=== PATIENT | female | born 1955 | race Caucasian/White ===

== ENCOUNTER 2017-07-01 08:50 | Inpatient (IN) | payer MEDICARE ==
[~2017-07-01] VITALS: Ht 157.5 cm; Wt 112.9 kg
[~2017-07-01 08:50] MED LIST: ATOR10TA9 PO; CARV3.1212 PO; COLE1TAB2 PO; CYCL-259 PO; DICL75TA2 PO; DULO30CA2 PO; ERGO500017 PO; FERR325T10 PO; GABA800T2 PO; HYDR25TA6 PO; IBUP800T PO; METH500T7 PO; MIRT30TA4 PO; OMEP-110 PO; OXYM15TA7 PO
[2017-07-01] MEDS ORDERED: VANCOMYCIN PMX 1GM/200ML 200 ML IV STA (08:58)
[2017-07-01 09:27] VITALS: BP 141/92
[2017-07-01] MEDS ORDERED: LACTATED RINGERS 1,000 ML IV SCH (09:32)
[2017-07-01] MEDS ORDERED: XTAMPZA PO (09:58)
[2017-07-01] MEDS ORDERED: PNEUMOCOCCAL 23 VACCINE IM-VACC ONE (10:00)
[2017-07-01] MEDS ORDERED: MIDAZOLAM 1 MG/ML, 2ML ONE (11:22)
[2017-07-01] MEDS ORDERED: FENTANYL PF 250 MCG/5ML ONE ×2 (11:22→17:04)
[2017-07-01] MEDS ORDERED: TRANEXAMIC ACID 100 MG/ML, 10ML ONE (12:05)
[2017-07-01] MEDS ORDERED: BACITRACIN 50,000 UNIT ONE (12:05)
[2017-07-01] MEDS ORDERED: THROMBIN 5,000 UNIT VIAL TP ONE (12:05)
[2017-07-01] MEDS ORDERED: BUPIVACAINE/PF-EPI 0.5% 1:200K ONE (12:05)
[2017-07-01] MEDS ORDERED: METOPROLOL 1 MG/ML, 5ML ONE (12:45)
[2017-07-01] MEDS ORDERED: ROCURONIUM 10 MG/ML ONE ×2 (12:45)
[2017-07-01] MEDS ORDERED: PROPOFOL 10 MG/ML, 20ML ONE (12:45)
[2017-07-01] MEDS ORDERED: DEXAMETHASONE 4 MG/ML, 5ML ONE (12:45)
[2017-07-01] MEDS ORDERED: PHENYLEPHRINE 10 MG/ML ONE (12:45)
[2017-07-01] MEDS ORDERED: CEFAZOLIN 1,000 MG ONE ×2 (12:45)
[2017-07-01] MEDS ORDERED: ONDANSETRON 2MG/ML, 2ML ONE (12:45)
[2017-07-01] MEDS ORDERED: VANCOMYCIN 1,000 MG ONE (17:50)
[2017-07-01] MEDS ORDERED: PROMETHAZINE 25 MG/ML, 1ML IV PRN (18:00)
[2017-07-01] MEDS ORDERED: ONDANSETRON 2MG/ML, 2ML IVPush PRN (18:00)
[2017-07-01] MEDS ORDERED: OXYcodone 5 MG/5 ML ORAL.SOL UDC PO PRN (18:00)
[2017-07-01] MEDS ORDERED: MEPERIDINE/PF 25MG/0.5ML IVPush PRN (18:00)
[2017-07-01] MEDS ORDERED: hydrALAzine 20 MG/ML, 1ML IV PRN (18:00)
[2017-07-01] MEDS ORDERED: ACETAMINOPHEN 325 MG TABLET PO PRN ×2 (18:00→22:00)
[2017-07-01] MEDS ORDERED: ALBUTEROL/IPRATROPIUM 2.5MG/0.5MG, 3 ML NPPB PRN (18:00)
[2017-07-01] MEDS ORDERED: LABETALOL 5MG/ML, 20ML IV PRN ×2 (18:00→22:00)
[2017-07-01] MEDS: FENTANYL PF 100 MCG/2ML IV PRN ×2 (19:12→19:24)
[2017-07-01] MEDS ORDERED: FENTANYL PF 100 MCG/2ML ONE (19:12)
[2017-07-01] MEDS ORDERED: HYDROmorphone 1 MG/ML, 1ML ONE (19:12)
[2017-07-01] MEDS ORDERED: ACETAMINOPHEN 650 MG/20.3 ML UDC ONE (19:12)
[2017-07-01] MEDS: HYDROmorphone 1 MG/ML, 1ML IV PRN ×4 (19:12→20:58)
[2017-07-01] MEDS ORDERED: OXYcodone 5 MG/5 ML ORAL.SOL UDC ONE (19:13)
[2017-07-01] MEDS ORDERED: CYCLOBENZAPRINE 10 MG TABLET ONE (19:25)
[2017-07-01] MEDS ORDERED: CYCLOBENZAPRINE 10 MG TABLET PO PRN ×2 (19:30→22:00)
[2017-07-01] MEDS ORDERED: ZOLPIDEM 5MG TABLET PO PRN (21:00)
[2017-07-01] MEDS ORDERED: BISACODYL 10 MG SUPP PR PRN (22:00)
[2017-07-01] MEDS ORDERED: ACETAMINOPHEN 650 MG SUPP PR PRN (22:00)
[2017-07-01] MEDS ORDERED: HYDROcodone/APAP 10/325 MG TABLET PO PRN (22:00)
[2017-07-01] MEDS ORDERED: D5%-0.9% NACL+KCL 20MEQ 1,000 ML IV SCH (22:00)
[2017-07-01] MEDS ORDERED: morphine SULFATE 10 MG/ML, 1ML IV PRN (22:00)
[2017-07-01] MEDS ORDERED: DIPHENHYDRAMINE 50 MG/ML, 1ML IM PRN (22:00)
[2017-07-01] MEDS ORDERED: DIPHENHYDRAMINE 50 MG/ML, 1ML IVPush PRN (22:00)
[2017-07-01] MEDS ORDERED: MAGNESIUM HYDROXIDE 8%, 30ML UDC PO PRN (22:00)
[2017-07-01] MEDS ORDERED: ONDANSETRON 2MG/ML, 2ML IV PRN (22:00)
[2017-07-01] MEDS ORDERED: PROMETHAZINE 25 MG/ML, 1ML IM PRN (22:00)
[2017-07-01] MEDS ORDERED: PHARMACY MAY ADJ FOR RENAL FX MC PRN (22:30)
[2017-07-01] MEDS: CEFAZOLIN PMX 1GM/50ML 50 ML IVPB SCH (22:43)
[2017-07-01] MEDS: KETOROLAC 30 MG/1 ML IV PRN (22:44)
[2017-07-01] MEDS: SODIUM CHLORIDE 0.9% 1,000 ML IV PRN (23:34)
[2017-07-02] VITALS (7 sets, daily range): BP systolic 85–135; BP diastolic 5–69
[2017-07-02] MEDS ORDERED: ALBUTEROL/IPRATROPIUM 2.5MG/0.5MG, 3 ML NPPB PRN (00:30)
[2017-07-02] MEDS: SODIUM CHLORIDE 0.9% 1,000 ML IV PRN (03:49)
[2017-07-02 05:40] LABS: HEMATOCRIT 27.9 % (34.6-47.8); HEMOGLOBIN 9.3 g/dL (11.7-16.4); WHITE BLOOD COUNT 11.7 x10^3/uL (3.4-10)
[2017-07-02] MEDS: CEFAZOLIN PMX 1GM/50ML 50 ML IVPB SCH (05:46)
[2017-07-02] MEDS: CARVEDILOL 3.125 MG TABLET PO SCH ×2 (05:53→16:47)
[2017-07-02] MEDS: OMEPRAZOLE 20 MG CAPSULE.DR PO SCH (07:53)
[2017-07-02] MEDS: HYDROCHLOROTHIAZIDE 25 MG TABLET PO SCH (09:00)
[2017-07-02] MEDS: XTAMPZA 13.5 MG HOMEMEDPO SCH ×2 (09:00→21:00)
[2017-07-02] MEDS: GABAPENTIN 400 MG CAPSULE PO SCH ×3 (10:03→21:03)
[2017-07-02] MEDS: COLESTIPOL 1 GM TABLET PO SCH ×2 (10:03→21:00)
[2017-07-02] MEDS: FERROUS SULFATE 325 MG TABLET PO SCH ×2 (10:03→21:02)
[2017-07-02] MEDS: SENNA/DOCUSATE TABLET PO SCH (10:04)
[2017-07-02] MEDS: KETOROLAC 30 MG/1 ML IV PRN (10:22)
[2017-07-02] MEDS ORDERED: ACETAMINOPHEN 500 MG TABLET PO PRN (11:30)
[2017-07-02] MEDS ORDERED: DEXAMETHASONE 4 MG/ML, 1ML IV PRN (11:30)
[2017-07-02] MEDS ORDERED: ACETAMINOPHEN 650 MG SUPP PR PRN (11:30)
[2017-07-02] MEDS ORDERED: EPHEDRINE 50 MG/ML, 1ML IV PRN (12:00)
[2017-07-02] MEDS: DEXAMETHASONE 4 MG/ML, 1ML IV PRN (13:29)
[2017-07-02] MEDS: MIDODRINE 5 MG TABLET PO SCH ×2 (16:46→21:04)
[2017-07-02] MEDS: OXYcodone IR 5MG TABLET PO PRN (17:29)
[2017-07-02] MEDS: D5%-0.9% NACL+KCL 20MEQ 1,000 ML IV SCH (20:30)
[2017-07-02] MEDS: DULOXETINE 30 MG CAPSULE.DR PO SCH (21:00)
[2017-07-02] MEDS: ATORVASTATIN 10 MG TABLET PO SCH (21:05)
[2017-07-02] MEDS: MIRTAZAPINE 15 MG TABLET PO SCH (21:08)
[2017-07-03] MEDS: OXYcodone IR 5MG TABLET PO PRN ×3 (01:15→08:17)
[2017-07-03 03:18] VITALS: BP 116/72
[2017-07-03] MEDS: CYCLOBENZAPRINE 10 MG TABLET PO PRN (03:43)
[2017-07-03 05:38] LABS: HEMATOCRIT 27.4 % (34.6-47.8); HEMOGLOBIN 9.1 g/dL (11.7-16.4); WHITE BLOOD COUNT 9.5 x10^3/uL (3.4-10)
[2017-07-03] MEDS: KETOROLAC 30 MG/1 ML IV PRN (05:50)
[2017-07-03] MEDS: CARVEDILOL 3.125 MG TABLET PO SCH ×2 (07:05→16:54)
[2017-07-03] MEDS ORDERED: ERGOCALCIFEROL 50,000 UNIT CAPSULE PO SCH (08:00)
[2017-07-03] MEDS: OMEPRAZOLE 20 MG CAPSULE.DR PO SCH (08:17)
[2017-07-03 08:18] VITALS: BP 131/78
[2017-07-03] MEDS: MIDODRINE 5 MG TABLET PO SCH ×3 (08:37→20:59)
[2017-07-03] MEDS: XTAMPZA 13.5 MG HOMEMEDPO SCH ×2 (09:00→20:30)
[2017-07-03] MEDS: HYDROCHLOROTHIAZIDE 25 MG TABLET PO SCH (09:45)
[2017-07-03] MEDS: COLESTIPOL 1 GM TABLET PO SCH ×2 (09:45→21:00)
[2017-07-03] MEDS: FERROUS SULFATE 325 MG TABLET PO SCH ×2 (09:45→20:59)
[2017-07-03] MEDS: GABAPENTIN 400 MG CAPSULE PO SCH ×3 (09:45→20:58)
[2017-07-03] MEDS: SENNA/DOCUSATE TABLET PO SCH (09:46)
[2017-07-03] MEDS ORDERED: DIAZEPAM 5 MG TABLET PO ONE (11:00)
[2017-07-03] MEDS: DEXAMETHASONE 4 MG/ML, 1ML IV PRN ×2 (11:59→23:18)
[2017-07-03] MEDS: D5%-0.9% NACL+KCL 20MEQ 1,000 ML IV SCH ×2 (13:30→23:30)
[2017-07-03 16:03] VITALS: BP 120/68
[2017-07-03] MEDS: DIAZEPAM 5 MG TABLET PO SCH ×2 (16:54→23:43)
[2017-07-03] MEDS: DIPHENHYDRAMINE 50 MG CAPSULE PO PRN (18:28)
[2017-07-03 19:56] VITALS: BP 90/49
[2017-07-03] MEDS: DULOXETINE 30 MG CAPSULE.DR PO SCH (20:58)
[2017-07-03] MEDS: ATORVASTATIN 10 MG TABLET PO SCH (20:59)
[2017-07-03] MEDS: MIRTAZAPINE 15 MG TABLET PO SCH (22:18)
[2017-07-04 00:18] VITALS: BP 120/67
[2017-07-04] MEDS: KETOROLAC 30 MG/1 ML IV PRN (03:31)
[2017-07-04 03:37] VITALS: BP 111/56
[2017-07-04 05:14] LABS: HEMATOCRIT 27.5 % (34.6-47.8); HEMOGLOBIN 9.1 g/dL (11.7-16.4); WHITE BLOOD COUNT 9.8 x10^3/uL (3.4-10)
[2017-07-04] MEDS: DEXAMETHASONE 4 MG/ML, 1ML IV PRN ×2 (05:46→15:33)
[2017-07-04] MEDS: DIAZEPAM 5 MG TABLET PO SCH ×3 (05:46→17:55)
[2017-07-04] MEDS: CARVEDILOL 3.125 MG TABLET PO SCH ×2 (05:52→17:55)
[2017-07-04 05:54] VITALS: BP 94/54
[2017-07-04] MEDS: OMEPRAZOLE 20 MG CAPSULE.DR PO SCH (07:30)
[2017-07-04 08:06] VITALS: BP 129/81
[2017-07-04] MEDS: XTAMPZA 13.5 MG HOMEMEDPO SCH ×2 (08:16→21:00)
[2017-07-04] MEDS: HYDROCHLOROTHIAZIDE 25 MG TABLET PO SCH (09:00)
[2017-07-04] MEDS: MIDODRINE 5 MG TABLET PO SCH ×3 (09:00→21:42)
[2017-07-04] MEDS: D5%-0.9% NACL+KCL 20MEQ 1,000 ML IV SCH ×2 (09:30→19:30)
[2017-07-04] MEDS: CYCLOBENZAPRINE 10 MG TABLET PO PRN (09:58)
[2017-07-04] MEDS: COLESTIPOL 1 GM TABLET PO SCH ×2 (10:00→21:45)
[2017-07-04] MEDS: FERROUS SULFATE 325 MG TABLET PO SCH ×2 (10:00→21:40)
[2017-07-04] MEDS: GABAPENTIN 400 MG CAPSULE PO SCH ×3 (10:02→21:40)
[2017-07-04] MEDS: SENNA/DOCUSATE TABLET PO SCH (10:02)
[2017-07-04] MEDS: DIPHENHYDRAMINE 50 MG CAPSULE PO PRN (14:00)
[2017-07-04 14:49] VITALS: BP 136/75
[2017-07-04] MEDS: OXYcodone IR 5MG TABLET PO PRN (15:41)
[2017-07-04 19:00] VITALS: BP 92/52
[2017-07-04] MEDS: ATORVASTATIN 10 MG TABLET PO SCH (21:39)
[2017-07-04] MEDS: DULOXETINE 30 MG CAPSULE.DR PO SCH (21:40)
[2017-07-04] MEDS: MIRTAZAPINE 15 MG TABLET PO SCH (21:41)
[2017-07-05] VITALS (7 sets, daily range): BP systolic 110–142; BP diastolic 62–88
[2017-07-05] MEDS: DIAZEPAM 5 MG TABLET PO SCH ×4 (00:01→19:26)
[2017-07-05] MEDS: DEXAMETHASONE 4 MG/ML, 1ML IV PRN ×2 (00:02→06:17)
[2017-07-05] MEDS: D5%-0.9% NACL+KCL 20MEQ 1,000 ML IV SCH ×2 (04:23→15:30)
[2017-07-05 05:25] LABS: HEMOGLOBIN 8.5 g/dL (11.7-16.4)
[2017-07-05] MEDS: CARVEDILOL 3.125 MG TABLET PO SCH ×2 (06:38→19:26)
[2017-07-05] MEDS: XTAMPZA 13.5 MG HOMEMEDPO SCH ×2 (09:00→20:45)
[2017-07-05] MEDS: FERROUS SULFATE 325 MG TABLET PO SCH ×2 (09:07→20:47)
[2017-07-05] MEDS: HYDROCHLOROTHIAZIDE 25 MG TABLET PO SCH (09:07)
[2017-07-05] MEDS: GABAPENTIN 400 MG CAPSULE PO SCH ×3 (09:07→20:47)
[2017-07-05] MEDS: OMEPRAZOLE 20 MG CAPSULE.DR PO SCH (09:07)
[2017-07-05] MEDS: SENNA/DOCUSATE TABLET PO SCH (09:07)
[2017-07-05] MEDS: MIDODRINE 5 MG TABLET PO SCH ×3 (09:07→20:46)
[2017-07-05] MEDS: OXYcodone IR 5MG TABLET PO PRN ×4 (09:29→20:46)
[2017-07-05] MEDS: COLESTIPOL 1 GM TABLET PO SCH ×2 (10:00→20:47)
[2017-07-05] MEDS: MIRTAZAPINE 15 MG TABLET PO SCH (20:47)
[2017-07-05] MEDS: ATORVASTATIN 10 MG TABLET PO SCH (20:47)
[2017-07-05] MEDS: DULOXETINE 30 MG CAPSULE.DR PO SCH (20:47)
[2017-07-06] MEDS: OXYcodone IR 5MG TABLET PO PRN ×5 (00:15→16:06)
[2017-07-06] MEDS: DIAZEPAM 5 MG TABLET PO SCH ×3 (00:15→13:07)
[2017-07-06] MEDS: D5%-0.9% NACL+KCL 20MEQ 1,000 ML IV SCH ×2 (01:28→11:30)
[2017-07-06 03:51] VITALS: BP 92/50
[2017-07-06] MEDS: SODIUM CHLORIDE 0.9% 1,000 ML IV PRN (04:17)
[2017-07-06] MEDS: CARVEDILOL 3.125 MG TABLET PO SCH (05:50)
[2017-07-06 06:58] LABS: HEMATOCRIT 26.2 % (34.6-47.8); HEMOGLOBIN 8.6 g/dL (11.7-16.4); WHITE BLOOD COUNT 11.1 x10^3/uL (3.4-10)
[2017-07-06] MEDS: COLESTIPOL 1 GM TABLET PO SCH (08:16)
[2017-07-06] MEDS: OMEPRAZOLE 20 MG CAPSULE.DR PO SCH (08:16)
[2017-07-06] MEDS: SENNA/DOCUSATE TABLET PO SCH (08:16)
[2017-07-06] MEDS: GABAPENTIN 400 MG CAPSULE PO SCH ×2 (08:16→16:06)
[2017-07-06] MEDS: MIDODRINE 5 MG TABLET PO SCH (08:17)
[2017-07-06] MEDS: HYDROCHLOROTHIAZIDE 25 MG TABLET PO SCH (08:17)
[2017-07-06] MEDS: FERROUS SULFATE 325 MG TABLET PO SCH (08:17)
[2017-07-06] MEDS: XTAMPZA 13.5 MG HOMEMEDPO SCH (09:00)
[2017-07-06 09:18] VITALS: BP 138/67
[2017-07-06] MEDS ORDERED: MIDO10TA PO (13:43)
[2017-07-06] MEDS ORDERED: SENN-31 PO (13:44)
[2017-07-06] MEDS ORDERED: ACET-1757 PO (13:45)
[2017-07-06] MEDS ORDERED: ACET-76 PO (13:46)
[2017-07-06] MEDS ORDERED: BISA10SU2 PR (13:46)
[2017-07-06] MEDS ORDERED: DIPH25CA61 PO (13:47)
[2017-07-06] MEDS ORDERED: HYDR-3307 PO (13:48)
[2017-07-06] MEDS ORDERED: MAGN400O4 PO (13:49)
[2017-07-06] MEDS ORDERED: OXYC5CAP4 PO (13:50)
[2017-07-06] MEDS ORDERED: ZOLP-413 PO (13:51)
[2017-07-06] MEDS ORDERED: MORP30TA PO (13:52)
[2017-07-06 14:07] VITALS: BP 148/71
== END 2017-07-06 16:15 | DRG 457 ==
LOC: ORIP 08:50 → EDSTATUS 10:30 → 4NOR 21:05
PROVIDERS: ADMIT Orthopaedic Surgery Orthopaedic Surgery of the Spine; ATTEND Orthopaedic Surgery Orthopaedic Surgery of the Spine
PROC: 0SG1071 Fusion of 2 or more Lumbar Vertebral Joints with Autologous Tissue Substitute, Posterior Approach, Posterior Column, Open Approach (ICD-10-PCS; 2017-07-01)
PROC: 07DR3ZZ Extraction of Iliac Bone Marrow, Percutaneous Approach (ICD-10-PCS; 2017-07-01)
PROC: 4A01X4Z Measurement of Peripheral Nervous Electrical Activity, External Approach (ICD-10-PCS; 2017-07-01)
PROC: 0SG0071 Fusion of Lumbar Vertebral Joint with Autologous Tissue Substitute, Posterior Approach, Posterior Column, Open Approach (ICD-10-PCS; 2017-07-01)
PROC: 0SG3071 Fusion of Lumbosacral Joint with Autologous Tissue Substitute, Posterior Approach, Posterior Column, Open Approach (ICD-10-PCS; 2017-07-01)
PROC: 0RGA071 Fusion of Thoracolumbar Vertebral Joint with Autologous Tissue Substitute, Posterior Approach, Posterior Column, Open Approach (ICD-10-PCS; principal; 2017-07-01 10:30)
DX: M41.85 Other forms of scoliosis, thoracolumbar region (principal); Z68.42 Body mass index [BMI] 45.0-49.9, adult; I10 Essential (primary) hypertension; M48.04 Spinal stenosis, thoracic region; M48.06 Spinal stenosis, lumbar region; M43.16 Spondylolisthesis, lumbar region; J44.9 Chronic obstructive pulmonary disease, unspecified; G47.30 Sleep apnea, unspecified; M48.07 Spinal stenosis, lumbosacral region; M51.14 Intervertebral disc disorders with radiculopathy, thoracic region; Z90.89 Acquired absence of other organs; Z23 Encounter for immunization; Z90.49 Acquired absence of other specified parts of digestive tract; Z98.1 Arthrodesis status
CPT/HCPCS: 36415; 72100; 85025; 86850; 86900; 90732; C1713; J0690; J1100; J1170; J1885; J2250; J2270; J2405; J2704; J3010; J3370; C1760; C1762; C1763; C9362; J2370; J3480; J7030; J7120

== ENCOUNTER → 2019-04-04 | Outpatient (CLI) | payer MEDICARE ==
[~2019-04-04] MED LIST changes: +ACET-1757 PO; +ACET-76 PO; +ALBU1.25 NEB; +ATOR40TA78 PO; +BISA10SU2 PR; +CELE200C PO; +CHOL500015 PO; +CYCL5TAB PO; -DICL75TA2 PO; +DICL75TA3 PO; +DIPH25CA61 PO; +EMPA25TA PO; -FERR325T10 PO; +FERR325T17 PO; -GABA800T2 PO; +GABA800T5 PO; +HYDR-3307 PO; +IBUP-1223 PO; -IBUP800T PO; +MAGN400O7 PO; +METF1000 PO; +MIDO10TA PO; +MORP30TA PO; +OXYC13.5 PO; +OXYC5CAP2 PO; +SENN-31 PO; +SPIR25TA5 PO; +XTAMPZA PO; +ZOLP-413 PO
[2019-04-04 15:36] LABS: MICROSCOPIC NOT IND
[2019-04-04 15:38] LABS: BASOPHILS # (AUTO) 0.02 x10^3/uL (0-0.1); BASOPHILS % (AUTO) 0 % (0-1); EOSINOPHILS # (AUTO) 0.18 x10^3/uL (0-0.4); EOSINOPHILS % (AUTO) 2 % (1-7); LYMPHOCYTES # (AUTO) 2.43 x10^3/uL (1-3.4); LYMPHOCYTES % (AUTO) 31 % (22-44); MD NO; MEAN CORPUSCULAR HEMOGLOBIN 27.9 pg (27.0-34.8); MEAN CORPUSCULAR HGB CONC 32.7 g/dL (32.4-35.8); MEAN CORPUSCULAR VOLUME 85.3 fL (80-100); MEAN PLATELET VOLUME 7.2 fL (7.4-10.4); MONOCYTES # (AUTO) 0.52 x10^3/uL (0.2-0.8); MONOCYTES % (AUTO) 7 % (2-9); NEUTROPHILS # (AUTO) 4.72 x10^3/uL (1.8-6.8); NEUTROPHILS % (AUTO) 60 % (42-75); PLATELET COUNT 379 x10^3/uL (130-400); RED BLOOD COUNT 4.63 x10^6/uL (3.82-5.3); RED CELL DISTRIBUTION WIDTH 15.2 % (9.6-15.2)
[2019-04-04 15:40] LABS: HCT (SEDRATE) 39.5 % (34.6-47.8)
[2019-04-04 15:47] LABS: CULTURE INDICATED? NO; INTERNATIONAL NORMALIZED RATIO 0.96 (0.93-1.1); PROTHROMBIN TIME 10.1 Seconds (9.6-11.5)
[2019-04-04 15:49] LABS: ALANINE AMINOTRANSFERASE 36 U/L (12-78); ALBUMIN 3.7 g/dL (3.4-5.0); ANION GAP 8 mmol/L (5-15); CALCIUM 9.5 mg/dL (8.5-10.1); CHLORIDE 108 mmol/L (98-107); CREATININE 1.11 mg/dL (0.55-1.02)
[2019-04-04 15:51] LABS: ALKALINE PHOSPHATASE 83 U/L (45-117); BILIRUBIN,TOTAL 0.3 mg/dL (0.2-1.0); TOTAL PROTEIN 7.3 g/dL (6.4-8.2)
== END | disposition home or self-care (01) ==
LOC: STAR 14:00
PROVIDERS: ATTEND Orthopaedic Surgery Orthopaedic Surgery of the Spine
DX: Z01.818 Encounter for other preprocedural examination (principal); M13.88 Other specified arthritis, other site
CPT/HCPCS: 36415; 71046; 80053; 81003; 85025; 85610; 85651; 85730; 93005

== ENCOUNTER 2019-04-13 08:28 | Observation (INO) | payer MEDICARE ==
[~2019-04-13] VITALS: Ht 157.5 cm; Wt 110.1 kg
[~2019-04-13 08:28] MED LIST changes: +BUPIVACAINE/PF-EPI 0.5% 1:200K ONE; +VANCOMYCIN 500 MG ONE
[2019-04-13] MEDS ORDERED: VANCOMYCIN PER PHARMACY MC ONE (08:56)
[2019-04-13] MEDS: LACTATED RINGERS 1,000 ML IV SCH (09:17)
[2019-04-13] MEDS ORDERED: GABAPENTIN 300 MG CAPSULE PO ONE (09:30)
[2019-04-13] MEDS ORDERED: DIAZEPAM 5 MG TABLET PO ONE (09:30)
[2019-04-13] MEDS ORDERED: VANCOMYCIN 2,100 MG in SODIUM CHLORIDE 0.9% 500 ML IV ONE (09:30)
[2019-04-13] MEDS ORDERED: OxyconTIN ER 20 MG TAB.ER PO ONE (09:30)
[2019-04-13] MEDS ORDERED: SCOPOLAMINE PATCH, 1.5MG PATCH.TD72 TD ONE (09:30)
[2019-04-13] MEDS ORDERED: ACETAMINOPHEN 500 MG TABLET PO ONE (09:30)
[2019-04-13] MEDS ORDERED: FENTANYL PF 250 MCG/5ML ONE (10:23)
[2019-04-13] MEDS ORDERED: MIDAZOLAM 1 MG/ML, 2ML ONE (10:23)
[2019-04-13] MEDS ORDERED: PHENYLEPHRINE 10 MG/ML ONE (11:32)
[2019-04-13] MEDS ORDERED: ROCURONIUM 10 MG/ML,10ML ONE (11:32)
[2019-04-13] MEDS ORDERED: DEXAMETHASONE 4 MG/ML, 1ML ONE (12:18)
[2019-04-13] MEDS ORDERED: ONDANSETRON 2MG/ML, 2ML ONE (12:18)
[2019-04-13] MEDS ORDERED: SUCCINYLCHOLINE 20 MG/ML, 10ML ONE (12:18)
[2019-04-13] MEDS ORDERED: CEFAZOLIN 1,000 MG ONE (12:18)
[2019-04-13] MEDS ORDERED: PROPOFOL 10 MG/ML, 20ML ONE (12:18)
[2019-04-13] MEDS ORDERED: FENTANYL PF 100 MCG/2ML IV PRN (12:30)
[2019-04-13] MEDS ORDERED: MEPERIDINE/PF 25MG/0.5ML IVPush PRN (12:30)
[2019-04-13] MEDS ORDERED: hydrALAzine 20 MG/ML, 1ML IV PRN (12:30)
[2019-04-13] MEDS ORDERED: METOPROLOL 1 MG/ML, 5ML IV PRN (12:30)
[2019-04-13] MEDS ORDERED: HYDROmorphone 2 MG/ML, 1ML IVPush PRN (12:30)
[2019-04-13] MEDS ORDERED: ALBUTEROL/IPRATROPIUM 2.5MG/0.5MG, 3 ML NPPB PRN (12:30)
[2019-04-13] MEDS ORDERED: PROMETHAZINE 25 MG/ML, 1ML IV PRN (12:30)
[2019-04-13] MEDS ORDERED: ONDANSETRON 2MG/ML, 2ML IV PRN (12:30)
[2019-04-13] MEDS ORDERED: EPHEDRINE 50 MG/ML, 1ML IVPush PRN (12:30)
[2019-04-13] MEDS ORDERED: DIAZEPAM 5 MG/ML, 2ML IVPush PRN (12:30)
[2019-04-13] MEDS ORDERED: MIDAZOLAM 1 MG/ML, 2ML IV PRN (12:30)
[2019-04-13] MEDS ORDERED: OXYcodone 5 MG/5 ML ORAL.SOL UDC ONE (16:53)
[2019-04-13] MEDS: OXYcodone 5 MG/5 ML ORAL.SOL UDC PO PRN ×2 (16:59→23:28)
[2019-04-13] MEDS ORDERED: OXYcodone ORAL.CONC 20 MG/ML PO PRN (19:30)
[2019-04-13] MEDS ORDERED: ACETAMINOPHEN 500 MG TABLET PO PRN (19:30)
[2019-04-13] MEDS ORDERED: DEXAMETHASONE 4 MG/ML, 1ML IVPush PRN (19:30)
[2019-04-13] MEDS ORDERED: SODIUM CHLORIDE 0.9% 1,000ML IVBOLUS ONE (19:30)
[2019-04-13] MEDS ORDERED: DIAZEPAM ELIXIR 1 MG/ML PO PRN (19:30)
[2019-04-13] MEDS ORDERED: KETOROLAC 30 MG/1 ML IV PRN (19:30)
[2019-04-13] MEDS ORDERED: ATORVASTATIN 40 MG TABLET PO SCH (21:00)
[2019-04-13] MEDS ORDERED: MIRTAZAPINE 15 MG TABLET PO SCH (22:30)
[2019-04-13] MEDS ORDERED: metFORMIN 850 MG TABLET PO SCH (22:30)
[2019-04-13] MEDS ORDERED: ATORVASTATIN 40 MG TABLET ONE (23:10)
[2019-04-13] MEDS ORDERED: CARVEDILOL 3.125 MG TABLET ONE (23:10)
[2019-04-13] MEDS ORDERED: metFORMIN 500 MG TABLET ONE (23:11)
[2019-04-13 23:13] VITALS: BP 115/63
[2019-04-13] MEDS ORDERED: DULOXETINE 30 MG CAPSULE.DR ONE (23:26)
[2019-04-13] MEDS: CARVEDILOL 3.125 MG TABLET PO SCH (23:28)
[2019-04-13] MEDS: CYCLOBENZAPRINE 10 MG TABLET PO SCH (23:28)
[2019-04-13] MEDS: GABAPENTIN 400 MG CAPSULE PO SCH (23:29)
[2019-04-14] MEDS: LACTATED RINGERS 1,000 ML IV SCH (01:43)
[2019-04-14 02:22] VITALS: BP 103/55
[2019-04-14 05:57] VITALS: BP 117/64
[2019-04-14] MEDS ORDERED: CARVEDILOL 3.125 MG TABLET PO SCH (06:00)
[2019-04-14] MEDS: CARVEDILOL 3.125 MG TABLET PO SCH ×2 (06:01→18:00)
[2019-04-14 08:20] VITALS: BP 99/64
[2019-04-14] MEDS ORDERED: metFORMIN 500 MG TABLET PO SCH (08:41)
[2019-04-14] MEDS: CYCLOBENZAPRINE 10 MG TABLET PO SCH ×2 (08:56→15:07)
[2019-04-14] MEDS: GABAPENTIN 400 MG CAPSULE PO SCH ×2 (08:59→15:07)
[2019-04-14] MEDS ORDERED: DULOXETINE 30 MG CAPSULE.DR PO SCH (09:00)
[2019-04-14] MEDS ORDERED: CHOLECALCIFEROL 1,000 UNIT TABLET PO SCH (09:00)
[2019-04-14] MEDS ORDERED: SPIRONOLACTONE 25 MG TABLET PO SCH (09:00)
[2019-04-14] MEDS: metFORMIN 500 MG TABLET PO SCH ×2 (09:02→17:19)
[2019-04-14] MEDS: OXYcodone 5 MG/5 ML ORAL.SOL UDC PO PRN ×4 (09:05→18:03)
[2019-04-14 15:09] VITALS: BP 92/60
[2019-04-14] MEDS ORDERED: OXYC5CAP2 PO (16:23)
[2019-04-14 18:00] VITALS: BP 101/68
[2019-04-14 19:20] VITALS: BP 104/65
[2019-04-14] MEDS ORDERED: ATORVASTATIN 40 MG TABLET PO SCH (21:00)
== END 2019-04-14 19:40 | disposition home or self-care (01) ==
LOC: OUT 08:28 → 4NOR 20:00 → OUT 22:15 → 4NOR 22:15
PROVIDERS: ADMIT Orthopaedic Surgery Orthopaedic Surgery of the Spine; ATTEND Orthopaedic Surgery Orthopaedic Surgery of the Spine
DX: M46.1 Sacroiliitis, not elsewhere classified (principal); M47.818 Spondylosis without myelopathy or radiculopathy, sacral and sacrococcygeal region; I10 Essential (primary) hypertension; E11.9 Type 2 diabetes mellitus without complications; J44.9 Chronic obstructive pulmonary disease, unspecified
CPT/HCPCS: 27279; 72202; 76000; 82962; 95907; 95926; 95940; 96374; 96375; 97162; 97166; C1713; C1762; G0378; J0330; J0690; J1100; J1885; J2250; J2370; J2405; J2704; J3010; J3370; J7040; J7120

== ENCOUNTER → 2019-11-06 | Outpatient (CLI) | payer MEDICARE ==
[~2019-11-06] MED LIST changes: -ACET-1757 PO; +ACET-2065 PO; -BISA10SU2 PR; +BISA10SU4 PR; -BUPIVACAINE/PF-EPI 0.5% 1:200K ONE; -HYDR-3307 PO; +HYDR-36 PO; -VANCOMYCIN 500 MG ONE
== END | disposition home or self-care (01) ==
LOC: CFH 08:37
PROVIDERS: ATTEND Internal Medicine
DX: G93.9 Disorder of brain, unspecified (principal)
CPT/HCPCS: 70450

== ENCOUNTER → 2020-08-30 | Outpatient (CLI) | payer MEDICARE ==
[~2020-08-30] MED LIST changes: +HYDR-3246 PO; -HYDR-36 PO; +OMNIPAQUE 350 MG/ML, 150 ML BOTTLE ONE
[2020-08-30 16:37] LABS: CREATININE 1.26 mg/dL (0.55-1.02)
== END | disposition home or self-care (01) ==
LOC: RAD 15:31
PROVIDERS: ATTEND Physician Assistant
DX: K43.9 Ventral hernia without obstruction or gangrene (principal); R19.7 Diarrhea, unspecified; R10.814 Left lower quadrant abdominal tenderness; M43.22 Fusion of spine, cervical region; M43.26 Fusion of spine, lumbar region; I83.92 Asymptomatic varicose veins of left lower extremity; Z20.828 Contact with and (suspected) exposure to other viral communicable diseases
CPT/HCPCS: 36415; 71046; 74177; 82565; Q9967